=== PATIENT | male | born 1990 | race Caucasian/White ===

== ENCOUNTER 2017-05-01 22:12 | Emergency (ER) | payer OTHER ==
[2017-05-01 22:32] VITALS: BP 142/86; PULSE 70; TEMP 98.8; BMI 24.4
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
== END 2017-05-01 22:49 | disposition home or self-care (01) ==
LOC: JER 22:12
DX: Z77.21 Contact with and (suspected) exposure to potentially hazardous body fluids (principal); Y35.891A Legal intervention involving other specified means, law enforcement official injured, initial encounter; Y93.F9 Activity, other caregiving; Y92.89 Other specified places as the place of occurrence of the external cause; Y99.0 Civilian activity done for income or pay
CPT/HCPCS: 99281-25

== ENCOUNTER 2019-03-11 20:50 | Emergency (ER) | payer OTHER ==
[2019-03-11 20:56] VITALS: BP 122/82; PULSE 66; TEMP 98.6; BMI 25.0
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
== END 2019-03-11 21:21 | disposition home or self-care (01) ==
LOC: JERFT 20:50
DX: S00.83XA Contusion of other part of head, initial encounter (principal); Y35.811A Legal intervention involving manhandling, law enforcement official injured, initial encounter; Y93.89 Activity, other specified; Y92.89 Other specified places as the place of occurrence of the external cause; Y99.0 Civilian activity done for income or pay
CPT/HCPCS: 99281-25

== ENCOUNTER 2020-08-01 22:08 | Emergency (ER) | payer OTHER ==
[2020-08-01 22:13] VITALS: BP 135/99; PULSE 97; TEMP 99; BMI 25.0
== END 2020-08-01 22:50 | disposition home or self-care (01) ==
LOC: FER 22:08
DX: R10.9 Unspecified abdominal pain (principal)
CPT/HCPCS: 99281-25